=== PATIENT | female | born 1985 | race Caucasian/White ===

== ENCOUNTER → 2019-08-30 | Outpatient (CLI) | payer MEDICAID ==
--- NOTE | 2019-08-30 12:57 | MM ---
Reason for exam: screening (asymptomatic). Baseline mammogram. History: Taking hormonal contraceptives beginning at age 10. Physical Findings: Nurse did not find any significant physical abnormalities on exam. MG 3D Screening Mammo W/Cad Bilateral CC and MLO view(s) were taken. The breast tissue is heterogeneously dense. This may lower the sensitivity of mammography. There is no discrete abnormality. These results were verbally communicated with the patient and result sheet given to the patient on 08/30/19. ASSESSMENT: Negative, BI-RAD 1 RECOMMENDATION: Routine screening mammogram of both breasts at age 38.
== END | disposition home or self-care (01) ==
LOC: RADMAMWWP 10:23
PROVIDERS: ATTEND Obstetrics & Gynecology
DX: Z12.31 Encounter for screening mammogram for malignant neoplasm of breast (principal)
CPT/HCPCS: 77063; 77067

== ENCOUNTER 2021-04-24 06:12 | Observation (INO) | payer MEDICAID ==
[2021-04-24] MEDS ORDERED: SODIUM CHLORIDE 0.9% 1,000 ML IV STA (06:26)
[2021-04-24] MEDS ORDERED: ONDANSETRON 4 MG/2 ML VIAL IVP STA (06:37)
[2021-04-24] MEDS ORDERED: KETOROLAC 15 MG/ML 1 ML VIAL IVP STA (06:37)
--- NOTE | 2021-04-24 06:40 | ED ---
Abdominal Pain HPI - General Chief Complaint: Abdominal Pain Stated Complaint: Abd Pain Time Seen by Provider: 04/24/21 06:26 Source: patient, RN notes reviewed Mode of arrival: ambulatory Limitations: no limitations - History of Present Illness Initial Comments: This a 35-year-old female presents emergency Department chief complaint of abdominal pain. Patient states he woke up around 2:00 this morning. States in her midabdomen and back. Patient denies any chest pain shortness of breath. States cannot get comfortable states pain is making her vomit. She did no prior abdominal surgeries no dysuria no hematuria denies any chance . Roxie ent states she's current control. Patient denies known fever or chills. - Related Data Home Medications Medication Instructions Recorded Confirmed Liraglutide [Saxenda] 3 mg SQ DAILY 04/24/21 04/24/21 Norgestimate-Ethinyl Estradiol 1 tab PO DAILY 04/24/21 04/24/21 [Vix-Qe-Bnldawft Tablet] hydroCHLOROthiazide [Hydrodiuril] 25 mg PO DAILY 04/24/21 04/24/21 Allergies Allergy/AdvReac Type Severity Reaction Status Date / Time Penicillins Allergy Dyspnea Verified 04/24/21 09:19 Review of Systems ROS Statement: Those systems with pertinent positive or pertinent negative responses have been documented in the HPI. ROS Other: All systems not noted in ROS Statement are negative. Past Medical History Past Medical History: No Reported History History of Any Multi-Drug Resistant Organisms: None Reported Past Surgical History: Tonsillectomy Additional Past Surgical History / Comment(s): ovarian cyst Past Psychological History: No Psychological Hx Reported Smoking Status: Never smoker Past Alcohol Use History: Occasional Past Drug Use History: None Reported General Exam Limitations: no limitations General appearance: alert, in no apparent distress Head exam: Present: atraumatic, normocephalic, normal inspection Neck exam: Present: normal inspection, full ROM. Absent: tenderness, meningismus, lymphadenopathy Respiratory exam: Present: normal lung sounds bilaterally. Absent: respiratory distress, wheezes, rales, rhonchi, stridor Cardiovascular Exam: Present: regular rate, normal rhythm, normal heart sounds. Absent: systolic murmur, diastolic murmur, rubs, gallop, clicks GI/Abdominal exam: Present: soft, tenderness (Moderate mid abdominal tenderness), normal bowel sounds. Absent: distended, guarding, rebound, rigid Back exam: Absent: CVA tenderness (R), CVA tenderness (L) Neurological exam: Present: alert Skin exam: Present: warm, dry, intact, normal color. Absent: rash Course Vital Signs 04/24/21 04/24/21 06:20 08:02 Temperature 97.9 F 98 F Pulse Rate 82 82 Respiratory 20 18 Rate Blood Pressure 131/75 109/51 O2 Sat by Pulse 98 100 Oximetry Medical Decision Making - Medical Decision Making Ultrasound and CAT scan review shows evidence of cholecystitis, cholelithiasis case discussed with Dr. Pichardo will admit patient for surgery. - Lab Data Result diagrams: 04/24/21 06:31 04/24/21 06:31 Lab Results 04/24/21 04/24/21 04/24/21 Range/Units 06:31 06:31 06:31 WBC 15.2 H (3.8-10.6) k/uL RBC 4.38 (3.80-5.40) m/uL Hgb 14.4 (11.4-16.0) gm/dL Hct 40.8 (34.0-46.0) % MCV 93.2 (80.0-100.0) fL MCH 32.8 (25.0-35.0) pg MCHC 35.2 (31.0-37.0) g/dL RDW 11.3 L (11.5-15.5) % Plt Count 316 (150-450) k/uL MPV 6.8 Neutrophils % 85 % Lymphocytes % 10 % Monocytes % 4 % Eosinophils % 1 % Basophils % 0 % Neutrophils # 13.0 H (1.3-7.7) k/uL Lymphocytes # 1.5 (1.0-4.8) k/uL Monocytes # 0.6 (0-1.0) k/uL Eosinophils # 0.1 (0-0.7) k/uL Basophils # 0.0 (0-0.2) k/uL Sodium 140 (137-145) mmol/L Potassium 4.0 (3.5-5.1) mmol/L Chloride 109 H (98-107) mmol/L Carbon Dioxide 23 (22-30) mmol/L Anion Gap 8 mmol/L BUN 16 (7-17) mg/dL Creatinine 0.61 (0.52-1.04) mg/dL Est GFR (CKD-EPI)AfAm >90 (>60 ml/min/1.73 sqM) Est GFR (CKD-EPI)NonAf >90 (>60 ml/min/1.73 sqM) Glucose 130 H (74-99) mg/dL Plasma Lactic Acid Miguelito (0.7-2.0) mmol/L Calcium 9.1 (8.4-10.2) mg/dL Total Bilirubin 0.9 (0.2-1.3) mg/dL AST 16 (14-36) U/L ALT 21 (4-34) U/L Alkaline Phosphatase 72 (38-126) U/L Total Protein 7.5 (6.3-8.2) g/dL Albumin 4.6 (3.5-5.0) g/dL Amylase 73 (30-110) U/L Lipase 119 (23-300) U/L Urine Color Yellow Urine Appearance Cloudy H (Clear) Urine pH 5.5 (5.0-8.0) Ur Specific [place] 1.027 (1.001-1.035) Urine Protein 1+ H (Negative) Urine Glucose (UA) Negative (Negative) Urine Ketones Negative (Negative) Urine Blood Negative (Negative) Urine Nitrite Negative (Negative) Urine Bilirubin Negative (Negative) Urine Urobilinogen <2.0 (<2.0) mg/dL Ur Leukocyte Esterase Large H (Negative) Urine RBC 6 H (0-5) /hpf Urine WBC 73 H (0-5) /hpf Ur Squamous Epith Cells 26 H (0-4) /hpf Amorphous Sediment Few H (None) /hpf Urine Bacteria Few H (None) /hpf Urine Mucus Many H (None) /hpf 04/24/ Range/Units 06:31 WBC (3.8-10.6) k/uL RBC (3.80-5.40) m/uL Hgb (11.4-16.0) gm/dL Hct (34.0-46.0) % MCV (80.0-100.0) fL MCH (25.0-35.0) pg MCHC (31.0-37.0) g/dL RDW (11.5-15.5) % Plt Count (150-450) k/uL MPV Neutrophils % % Lymphocytes % % Monocytes % % Eosinophils % % Basophils % % Neutrophils # (1.3-7.7) k/uL Lymphocytes # (1.0-4.8) k/uL Monocytes # (0-1.0) k/uL Eosinophils # (0-0.7) k/uL Basophils # (0-0.2) k/uL Sodium (137-145) mmol/L Potassium (3.5-5.1) mmol/L Chloride (98-107) mmol/L Carbon Dioxide (22-30) mmol/L Anion Gap mmol/L BUN (7-17) mg/dL Creatinine (0.52-1.04) mg/dL Est GFR (CKD-EPI)AfAm (>60 ml/min/1.73 sqM) Est GFR (CKD-EPI)NonAf (>60 ml/min/1.73 sqM) Glucose (74-99) mg/dL Plasma Lactic Acid Miguelito 1.4 (0.7-2.0) mmol/L Calcium (8.4-10.2) mg/dL Total Bilirubin (0.2-1.3) mg/dL AST (14-36) U/L ALT (4-34) U/L Alkaline Phosphatase (38-126) U/L Total Protein (6.3-8.2) g/dL Albumin (3.5-5.0) g/dL Amylase (30-110) U/L Lipase (23-300) U/L Urine Color Urine Appearance (Clear) Urine pH (5.0-8.0) Ur Specific [place] (1.001-1.035) Urine Protein (Negative) Urine Glucose (UA) (Negative) Urine Ketones (Negative) Urine Blood (Negative) Urine Nitrite (Negative) Urine Bilirubin (Negative) Urine Urobilinogen (<2.0) mg/dL Ur Leukocyte Esterase (Negative) Urine RBC (0-5) /hpf Urine WBC (0-5) /hpf Ur Squamous Epith Cells (0-4) /hpf Amorphous Sediment (None) /hpf Urine Bacteria (None) /hpf Urine Mucus (None) /hpf Disposition Clinical Impression: Cholelithiasis with cholecystitis Disposition: ADMITTED IP TO THIS [facility] Condition: Fair Referrals: Sherita Gordillo MD [Primary Care Provider] - 1-2 days
[2021-04-24 07:03] LABS: Basophils % (A) 0 %; Eosinophils # (A) 0.1 k/uL (0-0.7); Eosinophils % (A) 1 %; HCT 40.8 % (34.0-46.0); HGB 14.4 gm/dL (11.4-16.0); Lymphocytes # (A) 1.5 k/uL (1.0-4.8); Lymphocytes % (A) 10 %; MCH 32.8 pg (25.0-35.0); MCHC 35.2 g/dL (31.0-37.0); MCV 93.2 fL (80.0-100.0); Mean Platelet Volume 6.8; Monocytes # (A) 0.6 k/uL (0-1.0); Monocytes % (A) 4 %; Neutrophils % (A) 85 %; Platelet Count 316 k/uL (150-450); RBC 4.38 m/uL (3.80-5.40); RDW 11.3 % (11.5-15.5); WBC 15.2 k/uL (3.8-10.6)
[2021-04-24 07:24] LABS: ALT 21 U/L (4-34); AST 16 U/L (14-36); African American GFR (CKD) >90 (>60 ml/min/1.73 sqM); Albumin 4.6 g/dL (3.5-5.0); Alkaline Phosphatase 72 U/L (38-126); Amylase 73 U/L (30-110); Anion Gap 8 mmol/L; Blood Urea Nitrogen 16 mg/dL (7-17); Calcium 9.1 mg/dL (8.4-10.2); Carbon Dioxide 23 mmol/L (22-30); Chloride 109 mmol/L (98-107); Glucose 130 mg/dL (74-99); Lipase 119 U/L (23-300); Non-African American GFR(CKD) >90 (>60 ml/min/1.73 sqM); Sodium 140 mmol/L (137-145); Total Bilirubin 0.9 mg/dL (0.2-1.3); Total Protein 7.5 g/dL (6.3-8.2)
[2021-04-24 07:34] LABS: Amorphous Sediment,Urine Few /hpf; Appearance,Urine Cloudy (Clear); Bacteria,Urine Few /hpf; Bilirubin,Urine Negative (Negative); Blood,Urine Negative (Negative); Color,Urine Yellow; Glucose,Urine (UA) Negative (Negative); Ketones,Urine Negative (Negative); Leukocyte Esterase,Urine Large (Negative); Mucus,Urine Many /hpf; Nitrite,Urine Negative (Negative); PH, Urine 5.5 (5.0-8.0); Protein,Urine 1+ (Negative); RBC,Urine 6 /hpf (0-5); Specific Gravity,Urine 1.027 (1.001-1.035); Squamous Epithelial Cell,Urine 26 /hpf (0-4); Urobilinogen,Urine <2.0 mg/dL (<2.0); WBC,Urine 73 /hpf (0-5)
--- NOTE | 2021-04-24 07:36 | CT ---
EXAMINATION TYPE: CT abdomen pelvis w con DATE OF EXAM: 04/24/2021 HISTORY: back pain radiating around under rib cage, nausea CT DLP: 1063.2mGycm Automated Exposure Control for Dose Reduction was Utilized. CONTRAST: CT scan of the abdomen and pelvis is performed without oral but with IV Contrast, patient injected wi th 100 mL of Isovue 300. COMPARISON: None FINDINGS: LUNG BASES: No significant abnormality is appreciated. LIVER/GB: To intraluminal dependent gallstones and gallbladder with distended margins but no surround ing fluid or fat stranding. PANCREAS: No significant abnormality is seen. SPLEEN: No significant abnormality is seen. ADRENALS: No significant abnormality is seen. KIDNEYS: No significant abnormality is seen. BOWEL: Suboptimal evaluation of bowel without enteric contrast. No suspicious small or large bowel di latation. UTERUS/ADNEXA: Anteverted uterus. LYMPH NODES: No greater than 1cm abdominal or pelvic lymph nodes are appreciated. OSSEOUS STRUCTURES: No significant abnormality is seen. OTHER: No significant additional abnormality is seen. IMPRESSION: Gallstones without secondary CT evidence for acute cholecystitis. No significant acute fi nding is seen to account for patient's clinical symptoms.
--- NOTE | 2021-04-24 08:54 | US ---
EXAMINATION TYPE: US gallbladder DATE OF EXAM: 04/24/2021 COMPARISON: NONE CLINICAL HISTORY: pain. EXAM MEASUREMENTS: Liver Length: 15.3 cm Gallbladder Wall: 0.5 cm CBD: 0.3 cm Right Kidney: 11.8 x 4.5 x 4.9 cm Pancreas: Tail obscured by overlying bowel gas, otherwise wnl Liver: wnl Gallbladder: Cholelithiasis with wall thickening Evidence for sonographic Jim's sign: Yes CBD: wnl Right Kidney: No hydronephrosis or masses seen IMPRESSION: 1. Cholelithiasis with gallbladder wall thickening measuring approximately 5 mm. Sonographic Jim s ign is positive. Clinical correlation for acute cholecystitis is recommended. 2. No renal calculi or hydronephrosis. 3. The tail of the pancreas is not visualized due to overlying bowel gas.
[2021-04-24] MEDS: HYDROmorphone 0.5 MG/0.5 ML SYRINGE IVP STA ×2 (08:58→16:15)
[2021-04-24] MEDS ORDERED: metroNIDAZOLE-NS PMX 500 MG in SALINE 1 100ML.BAG IVPB STA (09:50)
[2021-04-24] MEDS ORDERED: NALOXONE 0.4 MG/ML 1 ML VIAL IV PRN (09:53)
[2021-04-24] MEDS ORDERED: ONDANSETRON 4 MG/2 ML VIAL IVP PRN (09:53)
[2021-04-24] MEDS: SODIUM CHLORIDE 0.9% 1,000 ML IV SCH ×2 (10:13→23:20)
[2021-04-24] MEDS: KETOROLAC 15 MG/ML 1 ML VIAL IVP SCH ×2 (10:16→19:45)
[2021-04-24] MEDS: HYDROmorphone 0.5 MG/0.5 ML SYRINGE IVP PRN ×2 (12:18→17:54)
[2021-04-24] MEDS ORDERED: METOCLOPRAMIDE 5 MG/ML 2 ML VIAL IVP PRN (12:23)
[2021-04-24] MEDS ORDERED: IV FLUID CONTINUATION 600 ML IV ONE (12:55)
[2021-04-24] MEDS ORDERED: HEPARIN SODIUM,PORCINE/PF 5,000 UNIT/0.5 ML SYRINGE SQ ONE (13:32)
[2021-04-24] MEDS ORDERED: LEVOFLOXACIN 500MG-D5W PMX 500 MG in DEXTROSE/WATER 1 100ML.BAG IVPB STA (13:42)
--- NOTE | 2021-04-24 13:42 | P.GSHP ---
History of Present Illness H&P Date: 04/24/21 Chief Complaint: Acute calculus cholecystitis 35-year-old female comes in the ER today complaining of epigastric pain that began at 2 AM. Pain radiates to the mid back. Now the pain is localizing more to the right upper quadrant. This has been associated with multiple episodes of nausea and vomiting. No change in the color of her skin urine or stool. No fevers. Her liver enzymes are normal. White blood cell count 15.2. Ultrasound showed a thickened gallbladder wall and a positive Jim sign. CAT scan showed gallstones. - Review of Systems Comment: The patient denies any acute changes in vision or hearing, no dysphagia or odynophagia, no chest pain or shortness of breath, no dysuria or hematuria, no headache, no runny nose, no rectal bleeding or melena, no unexplained weight loss Past Medical History Past Medical History: No Reported History History of Any Multi-Drug Resistant Organisms: None Reported Past Surgical History: Tonsillectomy Additional Past Surgical History / Comment(s): ovarian cyst Past Psychological History: No Psychological Hx Reported Smoking Status: Never smoker Past Alcohol Use History: Occasional Past Drug Use History: None Reported Medications and Allergies Home Medications Medication Instructions Recorded Confirmed Type Liraglutide [Saxenda] 3 mg SQ DAILY 04/24/21 04/24/21 History Norgestimate-Ethinyl Estradiol 1 tab PO DAILY 04/24/21 04/24/21 History [Dnu-Oj-Bbjpdzzz Tablet] hydroCHLOROthiazide [Hydrodiuril] 25 mg PO DAILY 04/24/21 04/24/21 History Allergies Allergy/AdvReac Type Severity Reaction Status Date / Time Penicillins Allergy Dyspnea Verified 04/24/21 09:19 Surgical - Exam Vital Signs Temp Pulse Resp BP Pulse Ox 97.9 F 82 20 131/75 98 04/24/21 06:20 04/24/21 06:20 04/24/21 06:20 04/24/21 06:20 04/24/21 06:20 Physical exam: General: Well-developed, well-nourished HEENT: Normocephalic, sclerae nonicteric Abdomen: Right upper quadrant tenderness, nondistended Extremities: No edema Neuro: Alert and oriented Results - Labs 04/24/21 06:31 04/24/21 06:31 Abnormal Lab Results - Last 24 Hours (Table) 04/24/21 04/24/21 04/24/21 Range/Units 06:31 06:31 06:31 WBC 15.2 H (3.8-10.6) k/uL RDW 11.3 L (11.5-15.5) % Neutrophils # 13.0 H (1.3-7.7) k/uL Chloride 109 H (98-107) mmol/L Glucose 130 H (74-99) mg/dL Urine Appearance Cloudy H (Clear) Urine Protein 1+ H (Negative) Ur Leukocyte Esterase Large H (Negative) Urine RBC 6 H (0-5) /hpf Urine WBC 73 H (0-5) /hpf Ur Squamous Epith Cells 26 H (0-4) /hpf Amorphous Sediment Few H (None) /hpf Urine Bacteria Few H (None) /hpf Urine Mucus Many H (None) /hpf Microbiology - Last 24 Hours (Table) 04/24/21 06:31 Urine Culture - Preliminary Urine,Voided Diabetes panel 04/24/21 Range/Units 06:31 Sodium 140 (137-145) mmol/L Potassium 4.0 (3.5-5.1) mmol/L Chloride 109 H (98-107) mmol/L Carbon Dioxide 23 (22-30) mmol/L BUN 16 (7-17) mg/dL Creatinine 0.61 (0.52-1.04) mg/dL Glucose 130 H (74-99) mg/dL Calcium 9.1 (8.4-10.2) mg/dL AST 16 (14-36) U/L ALT 21 (4-34) U/L Alkaline Phosphatase 72 (38-126) U/L Total Protein 7.5 (6.3-8.2) g/dL Albumin 4.6 (3.5-5.0) g/dL Calcium panel 04/24/21 Range/Units 06:31 Calcium 9.1 (8.4-10.2) mg/dL Albumin 4.6 (3.5-5.0) g/dL Pituitary panel 04/24/21 Range/Units 06:31 Sodium 140 (137-145) mmol/L Potassium 4.0 (3.5-5.1) mmol/L Chloride 109 H (98-107) mmol/L Carbon Dioxide 23 (22-30) mmol/L BUN 16 (7-17) mg/dL Creatinine 0.61 (0.52-1.04) mg/dL Glucose 130 H (74-99) mg/dL Calcium 9.1 (8.4-10.2) mg/dL Adrenal panel 04/24/21 Range/Units 06:31 Sodium 140 (137-145) mmol/L Potassium 4.0 (3.5-5.1) mmol/L Chloride 109 H (98-107) mmol/L Carbon Dioxide 23 (22-30) mmol/L BUN 16 (7-17) mg/dL Creatinine 0.61 (0.52-1.04) mg/dL Glucose 130 H (74-99) mg/dL Calcium 9.1 (8.4-10.2) mg/dL Total Bilirubin 0.9 (0.2-1.3) mg/dL AST 16 (14-36) U/L ALT 21 (4-34) U/L Alkaline Phosphatase 72 (38-126) U/L Total Protein 7.5 (6.3-8.2) g/dL Albumin 4.6 (3.5-5.0) g/dL Assessment and Plan (1) Cholelithiasis with cholecystitis Narrative/Plan: Clinical scenario reviewed in detail with the patient. We'll proceed with laparoscopic, possible open cholecystectomy at this time. Risks of bleeding, infection, bile leak, bile duct injury, retained common bile duct stone, trocar injury, conversion to an open procedure, hernia, anesthesia related complications were reviewed. The patient understands and wishes to proceed. Current Visit: Yes Status: Acute Code(s): K80.10 - CALCULUS OF GALLBLADDER W CHRONIC CHOLECYST W/O OBSTRUCTION SNOMED Code(s): 878205298
[2021-04-24] MEDS ORDERED: fentaNYL (PF) 50 MCG/ML 2 ML AMP ONE (14:20)
[2021-04-24] MEDS ORDERED: ROCURONIUM 10 MG/ML (5 ML VIAL) IV ONE (14:20)
[2021-04-24] MEDS ORDERED: KETOROLAC 15 MG/ML 1 ML VIAL ONE (14:20)
[2021-04-24] MEDS ORDERED: SUCCINYLCHOLINE CHLORIDE 100 MG/5 ML SYR IV ONE (14:20)
[2021-04-24] MEDS ORDERED: NEOSTIGMINE 1 MG/ML 10 ML VIAL ONE (14:20)
[2021-04-24] MEDS ORDERED: LIDOCAINE 1% INJ 10MG/ML (20 ML MDV) ONE (14:20)
[2021-04-24] MEDS ORDERED: MIDAZOLAM 2 MG/2 ML VIAL ONE (14:20)
[2021-04-24] MEDS ORDERED: GLYCOPYRROLATE 0.2 MG/ML 2 ML VIAL ONE (14:20)
[2021-04-24] MEDS ORDERED: PROPOFOL 10 MG/ML 20 ML VIAL IV ONE (14:20)
[2021-04-24] MEDS ORDERED: LIDOCAINE 1%-EPI 1:100,000 20 ML VIAL SQ ONE (14:42)
[2021-04-24] MEDS ORDERED: LACTATED RINGERS 1,000 ML IV ONE (15:18)
[2021-04-24] MEDS ORDERED: Acetaminophen-Codeine 300-30mg TAB PO PRN (15:37)
[2021-04-24] MEDS ORDERED: ACETAMINOPHEN TAB 325 MG TAB PO PRN (15:37)
--- NOTE | 2021-04-24 15:39 | P.OP ---
Date of Procedure: 04/24/21 Procedure(s) Performed: PREOPERATIVE DIAGNOSIS: Acute calculus cholecystitis POSTOPERATIVE DIAGNOSIS: Same PROCEDURE: Laparoscopic cholecystectomy SURGEON: Marino EBL: Minimal see anesthesia record ANESTHESIA: Gen. COMPLICATIONS: None OPERATIVE PROCEDURE: The patient was brought and placed on the operating room table in the supine position. The patient was placed under general anesthesia at that time. The abdomen was prepped and draped in the usual sterile fashion. A small vertical infraumbilical incision was made. The fascia was grasped with the Kareen forceps. The fascia was retracted anteriorly. The Veress needle was advanced into the peritoneal cavity. The saline drop test was normal. Ins ufflation took place up to 15 mmHg. A 5 mm optical trocar was advanced and the peritoneal cavity. 2 additional 5 mm trochars were placed in the right upper quadrant under direct visualization. A 12 mm trocar was advanced into the epigastric incision site. The gallbladder was acutely inflamed. A small opening in the gallbladder was made as the gallbladder was too tense to grab. Bilious fluid was evacuated. The gallbladder was retracted superiorly and laterally. The peritoneum overlying the infundibulum was bluntly dissected. The patient's cystic duct was visualized. The junction between the cystic duct common and hepatic duct was identified. The critical view of safety was achieved after blunt dissection. The cystic duct was then divided after placement of 3 12 mm clips on the patient's side and one on the specimen side. The cystic artery was identified and clipped as well. A small vessel was seen along the gallbladder fossa and clipped as well. The gallbladder was then r emoved from the liver bed using electrocautery. The gallbladder was then removed from the epigastric trocar site with an Endo Catch bag. The gallbladder fossa was irrigated with saline. There was no evidence of any bleeding or biliary drainage seen. The fascia at the 12 millimeter site was closed using a Roman-John 0 Vicryl stitch. The trochars were then removed. The skin at all 4 sites was closed using a 4-0 Monocryl stitch. Skin glue was utilized on the incision sites. At the end of this procedure the sponge and needle counts were correct. DISPOSITION: Stable to the recovery room
[2021-04-24] MEDS: HEPARIN SODIUM,PORCINE/PF 5,000 UNIT/0.5 ML SYRINGE SQ SCH (17:24)
[2021-04-24 19:07] VITALS: RESP 16
[2021-04-24] MEDS: DOCUSATE 100 MG CAP PO SCH (19:46)
[2021-04-24] MEDS: FAMOTIDINE 20 MG TAB PO SCH (19:46)
[2021-04-24] MEDS: HYDROcodone/APAP 5-325MG 1 EACH TAB PO PRN (23:16)
[2021-04-25] MEDS: HEPARIN SODIUM,PORCINE/PF 5,000 UNIT/0.5 ML SYRINGE SQ SCH ×2 (01:32→09:35)
[2021-04-25] MEDS: KETOROLAC 15 MG/ML 1 ML VIAL IVP SCH ×3 (01:32→12:20)
[2021-04-25] MEDS: HYDROcodone/APAP 5-325MG 1 EACH TAB PO PRN ×2 (03:18→08:08)
[2021-04-25 08:38] VITALS: TEMP 98.3
[2021-04-25] MEDS: DOCUSATE 100 MG CAP PO SCH (09:35)
[2021-04-25] MEDS: FAMOTIDINE 20 MG TAB PO SCH (09:35)
[2021-04-25 13:51] VITALS: BP 101/62; PULSE 86
--- NOTE | 2021-04-25 14:49 | P.DS ---
Providers Date of admission: 04/24/21 10:16 Expected date of discharge: 04/25/21 Attending physician: Tico Pichardo Primary care physician: Sherita Gordillo - Discharge Diagnosis(es) (1) Cholelithiasis with cholecystitis Patient admitted for acute cholecystitis. Underwent laps, cholecystectomy yesterday. Doing well today. Tolerating diet. Minimal pain. She would like to go home. We'll discharge. Follow-up one week. Current Visit: Yes Status: Acute Patient Condition at Discharge: Fair Plan - Discharge Summary New Discharge Prescriptions: New oxyCODONE HCL [OxyIR] 5 mg PO Q6H PRN 3 Days #6 tab PRN Reason: Breakthrough Pain No Action Liraglutide [Saxenda] 3 mg SQ DAILY Norgestimate-Ethinyl Estradiol [Lbq-Ev-Jwnwdtwm Tablet] 1 tab PO DAILY hydroCHLOROthiazide [Hydrodiuril] 25 mg PO DAILY Discharge Medication List Liraglutide [Saxenda] 3 mg SQ DAILY 04/24/21 [History] Norgestimate-Ethinyl Estradiol [Afc-Rl-Qvigpenb Tablet] 1 tab PO DAILY 04/24/21 [History] hydroCHLOROthiazide [Hydrodiuril] 25 mg PO DAILY 04/24/21 [History] oxyCODONE HCL [OxyIR] 5 mg PO Q6H PRN 3 Days #6 tab 04/25/21 [Rx] Follow up Appointment(s)/Referral(s): Sherita Gordillo MD [Primary Care Provider] - 1-2 days Tico Pichardo MD [Medical Doctor] - 1 Week
== END 2021-04-25 16:00 | disposition home or self-care (01) ==
LOC: EC 06:12 → 6PED 10:16
PROVIDERS: ADMIT Surgery; ATTEND Surgery
DX: K80.12 Calculus of gallbladder with acute and chronic cholecystitis without obstruction (principal); K21.9 Gastro-esophageal reflux disease without esophagitis; N83.209 Unspecified ovarian cyst, unspecified side; Z79.899 Other long term (current) drug therapy; Z88.0 Allergy status to penicillin; Z79.3 Long term (current) use of hormonal contraceptives; Z20.822 Contact with and (suspected) exposure to COVID-19
CPT/HCPCS: 47562; 96374; 96375; 99285; 36415; 81025; 88304; 80053; 82150; 83605; 83690; 85025; 81001; 84703; 87086; 87635; 76705; 74177; G0378 ×2; J2250; J2710; J2405; J1956; J0696; J2001; J3010; J1885 ×2; J0330; J2704; J1170; Q9967; J1644 ×2

== ENCOUNTER → 2021-05-13 | Outpatient (CLI) | payer MEDICAID ==
[2021-05-13 14:33] LABS: HCT 41.1 % (37.2-46.3); MCH 32.3 pg (27.0-32.0); MCHC 34.1 g/dL (32.0-37.0); MCV 94.9 fL (80.0-97.0); Mean Platelet Volume 9.9 fL (9.5-12.2); Platelet Count 323 X 10*3/uL (140-440); RBC 4.33 X 10*6/uL (4.10-5.20); RDW 11.6 % (11.5-14.5); WBC 8.61 X 10*3/uL (4.50-10.00)
[2021-05-13 17:14] LABS: Hemoglobin A1C 4.6 % (4.0-6.0)
[2021-05-13 19:27] LABS: Albumin 4.6 g/dL (3.80-4.90); Albumin/Globulin Ratio 1.77 (1.60-3.17); Anion Gap 10.1 mmol/L (4.00-12.00); BUN/Creat Ratio 26.67 Ratio (12.00-20.00); Calcium 9.3 mg/dL (8.7-10.3); Carbon Dioxide 24.9 mmol/L (21.6-31.8); Chol/HDL Ratio 3.78; Globulin 2.6 g/dL (1.6-3.3); LDL Cholesterol,Calculated 98.8 mg/dL (0.0-131.0); Non-African American GFR(CKD) 116.4 (60.0-200.0); Total Protein 7.2 g/dL (6.2-8.2); VLDL Calculation 26.2 mg/dL (5.00-40.00)
[2021-05-13 19:34] LABS: T4, Free (Free Thyroxine) 1.2 ng/dL (0.80-1.80)
== END | disposition home or self-care (01) ==
LOC: LABWHC1 08:14
PROVIDERS: ATTEND Family Medicine
DX: Z00.00 Encounter for general adult medical examination without abnormal findings (principal); Z79.899 Other long term (current) drug therapy
CPT/HCPCS: 36415; 80053; 80061; 83036; 84439; 84443; 84480; 85027

== ENCOUNTER → 2024-11-10 | Outpatient (CLI) | payer MEDICAID ==
--- NOTE | 2024-11-12 02:31 | MM ---
Reason for Exam: Screening (asymptomatic). Last mammogram was performed 5 year(s) and 2 month(s) ago. Patient History: Menarche at age 10. First Full-Term at age 24. Currently using Hormonal Contraceptives, starting at age 10. Last menstrual period: 10/29/2024 Risk Values: Aleyda 5 year model risk: 0.7%. NCI Lifetime model risk: 11.0%. Prior Study Comparison: 08/30/2019 Bilateral Screening Mammogram, [facility]. Tissue Density: The breasts are heterogeneously dense, which may obscure small masses. Findings: Analyzed By CAD. The pattern is symmetrical. There is some asymmetric spiculated density in the medial left breast clearly evident on the mediolateral oblique view. Additional workup compression view is recommended. Right breast:No suspicious groups of microcalcifications, spiculated or lobular masses, architectural distortion or other secondary signs of malignancy are mammographically apparent. Overall Assessment: Incomplete: need additional imaging evaluation, BI-RAD 0 Management: Diagnostic Mammogram of the right breast. A negative mammogram report should not preclude additional follow up of suspicious palpable abnormalities. Patient should continue monthly self breast exam. A clinical breast exam by your physician is recommended on an annual basis and results should be correlated with mammographic findings. Note on Aleyda scores and lifetime risk: 1. A Aleyda score greater than 3% is considered moderate risk. If this is the case, consider specialist referral to assess eligibility for a risk reducing agent. 2. If overall lifetime risk for the development of breast cancer is 20% or higher, the patient may qualify for future screening with alternating mammogram and breast MRI. [facility], , 11/12/2024 2:29 AM. Electronically signed and approved by: Cody Silva D.O. Radiologis
== END | disposition home or self-care (01) ==
LOC: RADMAMWWP 16:04
PROVIDERS: ATTEND Obstetrics & Gynecology
DX: Z12.31 Encounter for screening mammogram for malignant neoplasm of breast (principal); R92.333 Mammographic heterogeneous density, bilateral breasts
CPT/HCPCS: 77063; 77067

== ENCOUNTER → 2024-11-15 | Outpatient (CLI) | payer MEDICAID ==
--- NOTE | 2024-11-15 14:00 | MM ---
Reason for Exam: Additional evaluation requested from prior study. Last screening mammogram was performed less than 1 month ago. Patient History: Menarche at age 10. First Full-Term at age 24. Currently using Hormonal Contraceptives, starting at age 10. Risk Values: Aleyda 5 year model risk: 0.7%. NCI Lifetime model risk: 11.0%. Tissue Density: Right: The breasts are heterogeneously dense, which may obscure small masses. Findings: Analyzed By CAD. Area of spiculation seen only on the right cc view medially 4 cm from the nipple is less conspicuous on today's study. Ultrasound over is recommended. Overall Assessment: Incomplete: need additional imaging evaluation, BI-RAD 0 Management: Diagnostic Breast Ultrasound of the right breast. . Results were given to the patient verbally at the time of exam. Patient should continue monthly self-breast exams. A clinical breast exam by your physician is recommended on an annual basis. This exam should not preclude additional follow-up of suspicious palpable abnormalities. Note on Aleyda scores and lifetime risk: 1. A Aleyda score greater than 3% is considered moderate risk. If this is the case, consider specialist referral to assess eligibility for a risk reducing agent. 2. If overall lifetime risk for the development of breast cancer is 20% or higher, the patient may qualify for future screening with alternating mammogram and breast MRI. [facility], , 11/15/2024 1:57 PM. Electronically signed and approved by: Alfie Hernandez M.D. Radiologis
--- NOTE | 2024-11-15 15:27 | USB ---
Reason for Exam: Additional evaluation requested from abnormal screening. Patient History: Menarche at age 10. First Full-Term at age 24. Currently using Hormonal Contraceptives, starting at age 10. Risk Values: Aleyda 5 year model risk: 0.7%. NCI Lifetime model risk: 11.0%. Technique: Method: Targeted. Prior Study Comparison: 08/30/2019 Bilateral Screening Mammogram, [facility]. 11/10/2024 Bilateral MG 3D screening mammo w/cad, [facility]. Findings: The lower section of the breast of the right breast, the axilla of the right breast and the retroareolar of the right breast were scanned. No solid or cystic masses are identified.. Overall Assessment: Probably benign, BI-RAD 3 Management: Diagnostic Mammogram of the right breast in 6 months. A clinical breast exam by your physician is recommended on an annual basis and results should be correlated with mammographic findings. This exam should not preclude additional follow-up of suspicious palpable abnormalities. Results were given to the patient verbally at the time of exam. [facility], , 11/15/2024 2:31 PM. Electronically signed and approved by: Alfie Hernandez M.D. Radiologis
== END | disposition home or self-care (01) ==
LOC: RADMAMWWP 13:23
PROVIDERS: ATTEND Obstetrics & Gynecology
DX: R92.8 Other abnormal and inconclusive findings on diagnostic imaging of breast (principal); R92.331 Mammographic heterogeneous density, right breast
CPT/HCPCS: 77061; 77065

== ENCOUNTER → 2024-11-17 | Outpatient (CLI) | payer MEDICAID ==
--- NOTE | 2024-11-17 18:56 | MR ---
EXAMINATION TYPE: MR brain wo con DATE OF EXAM: 11/17/2024 5:20 PM COMPARISON: None. CLINICAL INDICATION: Female, 39 years old with history of R41.3 OTHER AMNESIA; PHH, Memory loss, Forg etfulness, Headaches, Blurred vision, Hard to focus, Evaluate for demyelination TECHNIQUE: Multi planar, multi sequence imaging was performed through the brain including: T1, T2, In version recovery, Diffusion weighted imaging, and gradient echo imaging. No gadolinium was given. FINDINGS: The sexton-white junctions, ventricular system, basal cisterns appear unremarkable. . Midline structu res show no abnormality. Diffusion-weighted imaging shows no evidence of restricted diffusion. The rios sceptibility weighted images do not reveal any evidence for micro-hemorrhage. The bone marrow signal is within normal limits. Paranasal sinuses and mastoid air cells: No significant paranasal sinus disease. Visualized orbits: Orbital contents are intact. IMPRESSION: No evidence for active demyelination. No significant white matter changes. No evidence of intracrania l mass or acute/subacute infarct. [facility], , 11/17/2024 6:53 PM
== END | disposition home or self-care (01) ==
LOC: RADMRIMAIN 16:09
PROVIDERS: ATTEND Psychiatry & Neurology Neurology
DX: R41.3 Other amnesia (principal); H53.8 Other visual disturbances; R51.9 Headache, unspecified
CPT/HCPCS: 70551

== ENCOUNTER → 2025-01-02 | Outpatient (CLI) | payer MEDICAID | END | disposition home or self-care (01) | LOC: LABWHC1 12:44 | PROVIDERS: ATTEND Family Medicine | DX: Z11.1 Encounter for screening for respiratory tuberculosis (principal) | CPT/HCPCS: 36415; 86480 ==

== ENCOUNTER → 2025-05-15 | Outpatient (CLI) | payer MEDICAID ==
--- NOTE | 2025-05-15 10:48 | MM ---
Reason for Exam: Follow-up at short interval from prior study. Last screening mammogram was performed 6 month(s) ago. Patient History: Menarche at age 10. First Full-Term at age 24. Hormonal Contraceptives, starting at age 10. Last menstrual period: 05/02/2025 Risk Values: Aleyda 5 year model risk: 0.7%. NCI Lifetime model risk: 11.0%. Prior Study Comparison: 08/30/2019 Bilateral Screening Mammogram, [facility]. 11/10/2024 Bilateral MG 3D screening mammo w/cad, [facility]. 11/15/2024 Right MG 3D work up w/cad RT, [facility]. Tissue Density: Right: The breasts are heterogeneously dense, which may obscure small masses. Findings: Analyzed By CAD. The previous medial asymmetric density anterior right cc view remains unchanged. No persisting abnormality on 3-D images. No significant change from prior exams. Overall Assessment: Benign, BI-RAD 2 Management: Screening Mammogram of both breasts in 6 months. Back on schedule. Results were given to the patient verbally at the time of exam. Patient should continue monthly self-breast exams. A clinical breast exam by your physician is recommended on an annual basis. This exam should not preclude additional follow-up of suspicious palpable abnormalities. Note on Alyeda scores and lifetime risk: 1. A Aleyda score greater than 3% is considered moderate risk. If this is the case, consider specialist referral to assess eligibility for a risk reducing agent. 2. If overall lifetime risk for the development of breast cancer is 20% or higher, the patient may qualify for future screening with alternating mammogram and breast MRI. [facility], , 05/15/2025 10:45 AM. Electronically signed and approved by: Mathieu Portillo M.D. Radiologist
== END | disposition home or self-care (01) ==
LOC: RADMAMWWP 10:25
PROVIDERS: ATTEND Obstetrics & Gynecology
DX: R92.8 Other abnormal and inconclusive findings on diagnostic imaging of breast (principal); R92.331 Mammographic heterogeneous density, right breast; Z92.0 Personal history of contraception
CPT/HCPCS: 77061; 77065